=== PATIENT | male | born 1960 | race Caucasian/White ===

== ENCOUNTER 2017-02-20 17:01 | Emergency (ER) | payer BC ==
[2017-02-20 17:08] VITALS: BP 144/81
[2017-02-20] MEDS ORDERED: Lidocaine 1% with EPINEPHrine 1:100,000 20 ML MDV INJECT ONE (17:45)
[2017-02-20] MEDS ORDERED: Bacitracin/Neomycin/Polymyxin B Oint 0.9 GM U/D Packet ONE (17:58)
[2017-02-20] MEDS ORDERED: Bacitracin/Neomycin/Polymyxin B Oint 0.9 GM U/D Packet TOP PRN (18:23)
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
== END 2017-02-20 18:40 | disposition home or self-care (01) ==
LOC: CC.ED 17:01
DX: S09.90XA Unspecified injury of head, initial encounter (principal); S01.81XA Laceration without foreign body of other part of head, initial encounter; E78.00 Pure hypercholesterolemia, unspecified; I10 Essential (primary) hypertension; I25.709 Atherosclerosis of coronary artery bypass graft(s), unspecified, with unspecified angina pectoris; V29.9XXA Motorcycle rider (driver) (passenger) injured in unspecified traffic accident, initial encounter; Z79.82 Long term (current) use of aspirin; Z79.01 Long term (current) use of anticoagulants; Z79.899 Other long term (current) drug therapy
CPT/HCPCS: 12014; 36415; 70450; 85610; 99284

== ENCOUNTER → 2021-12-30 | Day surgery (SDC) | payer BC ==
[~2021-12-30] MED LIST: Flumazenil 0.1 MG/ML 10 ML MDV ONE; Lactated Ringers 1,000 ML IV SCH; Lidocaine 2% 5 ML SDV ONE; Midazolam 1 MG/ML 2 ML SDV ONE; Phenylephrine 1% 10 MG/ML SDV ONE; Propofol 200 MG/20 ML SDV ONE; ePHEDrine 50 MG/ML SDV ONE; fentaNYL 100 MCG/2 ML SDV ONE
[2021-12-30 11:57] VITALS: BP 112/71; PULSE 62
== END ==
LOC: CC.SDS 09:35
PROVIDERS: ATTEND Family Medicine
DX: Z12.11 Encounter for screening for malignant neoplasm of colon (principal); K52.9 Noninfective gastroenteritis and colitis, unspecified; K63.3 Ulcer of intestine; I25.10 Atherosclerotic heart disease of native coronary artery without angina pectoris; K21.9 Gastro-esophageal reflux disease without esophagitis; E78.5 Hyperlipidemia, unspecified; E55.9 Vitamin D deficiency, unspecified; I25.2 Old myocardial infarction; Z79.82 Long term (current) use of aspirin; Z79.899 Other long term (current) drug therapy; Z86.16 Personal history of COVID-19
CPT/HCPCS: 00812; 36415; 85610; J2250; J2370; J2704; J3010; J7120

== ENCOUNTER 2022-09-05 02:19 | Emergency (ER) | payer BC ==
[2022-09-05] MEDS: Sodium Chloride 0.9% 1,000 ML IV ONE ×2 (02:53→04:21)
[2022-09-05] MEDS: Sodium Chloride 0.9% 1,000 ML IV SCH (03:56)
[2022-09-05 04:37] VITALS: BP 135/74; PULSE 62
== END 2022-09-05 04:30 | disposition home or self-care (01) ==
LOC: CC.ED 02:19
DX: E86.0 Dehydration (principal); F10.120 Alcohol abuse with intoxication, uncomplicated; Y90.8 Blood alcohol level of 240 mg/100 ml or more; I10 Essential (primary) hypertension; I25.10 Atherosclerotic heart disease of native coronary artery without angina pectoris; E78.00 Pure hypercholesterolemia, unspecified; Z79.01 Long term (current) use of anticoagulants; W18.2XXA Fall in (into) shower or empty bathtub, initial encounter
CPT/HCPCS: 36415; 70450; 80053; 80307; 85025; 85610; 93005; 93010; 96360; 96361; 99284; J7030

== ENCOUNTER 2025-04-25 11:00 | Emergency (ER) | payer BC, MEDICARE, OTHER ==
[2025-04-25 11:06] VITALS: BP 149/86; PULSE 57
[2025-04-25 11:26] LABS: BASOPHILS ABSOLUTE AUTO 0.01 10^3/uL (0.00-0.50); BASOPHILS PERCENT AUTO 0.2 % (0-1); EOSINOPHILS ABSOLUTE AUTO 0.21 10^3/uL (0.00-1.50); EOSINOPHILS PERCENT AUTO 3.9 % (0-6); IMMATURE GRAN ABSOLUTE AUTO 0.01 10^3/uL (0.00-0.49); IMMATURE GRAN PERCENT AUTO 0.2 % (0.0-4.9); LYMPHOCYTES ABSOLUTE AUTO 1.40 10^3/uL (0.60-5.00); LYMPHOCYTES PERCENT AUTO 26.1 % (24-44); MONOCYTES ABSOLUTE AUTO 0.53 10^3/uL (0.00-1.50); MONOCYTES PERCENT AUTO 9.9 % (0-10); NEUTROPHILS ABSOLUTE AUTO 3.20 x10^3/uL (1.80-8.00); NEUTROPHILS PERCENT AUTO 59.7 % (41-71); PLATELET COUNT,PLT 133 10^3/uL (150-400); RED BLOOD CELL COUNT 5.13 x10^6/uL (4.50-6.00); WHITE BLOOD CELL COUNT,WBC 5.4 10^3/uL (4.0-11.0)
[2025-04-25 11:41] LABS: ALANINE AMINOTRANSFERASE,ALT 51 U/L (12-78); ASPARTATE AMNIOTRANSFERASE,AST 29 U/L (15-37); BILIRUBIN TOTAL 0.9 mg/dL (0.0-1.0); BLOOD UREA NITROGEN,BUN 26 mg/dL (7-18); CARBON DIOXIDE,CO2 29 mmol/L (21-32); CHLORIDE,CL 106 mEq/L (98-106); CREATININE 1.4 mg/dL (0.7-1.3); EST CRCL DRUG DOSING (CG) 61.16 mL/min; GLUCOSE RANDOM 124 mg/dL (75-99); POTASSIUM,K 4.9 mEq/L (3.5-5.0); PROTEIN TOTAL,TP 7.2 g/dL (6.4-8.2); SODIUM,NA 139 mEq/L (136-145)
[2025-04-25 11:42] LABS: ESTIMATED GFR 56 mL/min (>=60)
[2025-04-25 11:48] LABS: APPEARANCE,URINE CLEAR (CLEAR); GLUCOSE,URINE NEGATIVE (NEGATIVE); OCCULT BLOOD,URINE TRACE-INTACT (NEGATIVE)
[2025-04-25 11:57] LABS: SQUAMOUS EPITHELIAL CELLS,UR NOT SEEN /HPF (NOT SEEN)
== END 2025-04-25 12:17 | disposition home or self-care (01) ==
LOC: CC.ED 11:00
DX: E86.0 Dehydration (principal); E78.00 Pure hypercholesterolemia, unspecified; Z79.899 Other long term (current) drug therapy; Z79.82 Long term (current) use of aspirin
CPT/HCPCS: 36415; 71046; 80053; 81001; 83735; 84484; 85025; 86140; 99284